=== PATIENT | female | born 1990 | race African-American/Black ===

== ENCOUNTER 2024-02-03 06:02 | Inpatient (IN) | payer OTHER ==
[2024-02-03] VITALS (8 sets, daily range): BP systolic 111–128; BP diastolic 55–63; TEMP 97.9–99.3; O2SAT 13–100
[~2024-02-03] VITALS: Ht 157.5 cm; Wt 79.5 kg
[~2024-02-03 06:02] MED LIST: FERR325T3 PO; NEUR300C PO; SUMA25TA3 PO; THERTAB52 PO; VITA100093 PO; XULA1DIS TD
[2024-02-03] MEDS ORDERED: LR 1,000 ML IV SCH (06:35)
[2024-02-03] MEDS ORDERED: LIDOCAINE 1% SDV 5ML VIAL SC PRN (06:35)
[2024-02-03 06:48] LABS: HCG, SERUM QUALITATIVE NEGATIVE (NEGATIVE)
[2024-02-03 06:53] LABS: ALBUMIN 3.2 G/DL (3.2-5.2); ALKALINE PHOSPHATASE 53 U/L (46-116); ALT/SGPT 12 U/L (7.0-40); AST/SGOT 11 U/L (<34); BILIRUBIN,TOTAL 0.3 MG/DL (0.3-1.2); BLOOD UREA NITROGEN 6 MG/DL (9-23); CARBON DIOXIDE LEVEL 27 MMOL/L (20-31); CHLORIDE LEVEL 109 MMOL/L (98-107); CREATININE FOR GFR 0.78 MG/DL (0.55-1.30); GLOMERULAR FILTRATION RATE > 60.0 (>60); GLUCOSE, FASTING 118 MG/DL (60-100); SODIUM LEVEL 140 MMOL/L (136-145)
[2024-02-03] MEDS ORDERED: NS 1,000 ML IV SCH (07:10)
[2024-02-03] MEDS ORDERED: fentaNYL 250 MCG/5 ML INJECTION As Ordered ONE (07:22)
[2024-02-03] MEDS ORDERED: LIDOCAINE 2% 100MG/5ML SDV (FOR ANES.) As Ordered ONE (07:22)
[2024-02-03] MEDS ORDERED: dexmedeTOMIDine (4MCG/ML)200MCG/50ML BTL (PRECEDEX) As Ordered ONE (07:22)
[2024-02-03] MEDS ORDERED: propofoL 200 MG/20 ML VIAL As Ordered ONE (07:22)
[2024-02-03] MEDS ORDERED: ROCURONIUM BROMIDE 50MG/5ML VIAL As Ordered ONE (07:22)
[2024-02-03] MEDS ORDERED: ONDANSETRON 4MG 2ML VIAL As Ordered ONE (07:22)
[2024-02-03] MEDS ORDERED: MIDAZOLAM INJ 2MG/2ML VIAL As Ordered ONE (07:23)
[2024-02-03] MEDS ORDERED: HOME MED LIST COMPLETE! XX SCH (07:35)
[2024-02-03] MEDS: ceFAZolin SOD 2 GM in IV 1 EA IV ONE (07:55)
[2024-02-03] MEDS: ceFAZolin 2 GM/D5W 50 ML IV BAG As Ordered ONE (08:16)
[2024-02-03] MEDS ORDERED: KETOROLAC 60MG 2ML VIAL As Ordered ONE (08:20)
[2024-02-03] MEDS ORDERED: SUGAMMADEX SODIUM 500 MG/5 ML VIAL (BRIDION) As Ordered ONE (08:20)
[2024-02-03] MEDS ORDERED: HYDROmorphone HCL 2MG/ML 1ML VIAL As Ordered ONE (08:20)
[2024-02-03] MEDS ORDERED: ACETAMINOPHEN 1000MG 100ML IV BAG As Ordered ONE (08:26)
[2024-02-03] MEDS: TRANEXAMIC ACID 100 MG/ML 10ML VIAL As Ordered ONE (08:40)
[2024-02-03] MEDS ORDERED: ESMOLOL INJ 100MG/10ML VIAL As Ordered ONE (08:45)
[2024-02-03] MEDS: SENOKOT S TAB PO SCH (09:00)
[2024-02-03] MEDS: VASOPRESSIN INJ 20UNITS/ML 1ML VIAL As Ordered ONE (09:03)
[2024-02-03] MEDS ORDERED: oxyCODONE 5MG TAB PO PRN (11:15)
[2024-02-03] MEDS ORDERED: fentaNYL 100 MCG/2 ML INJECTION IV PRN (11:15)
[2024-02-03] MEDS ORDERED: MIRALAX *UNIT DOSE* 17GM PACKET PO PRN (11:15)
[2024-02-03] MEDS ORDERED: METOCLOPRAMIDE INJ 10MG/2ML VIAL IV PRN (11:15)
[2024-02-03] MEDS: LR 1,000 ML IV SCH ×2 (11:15→14:08)
[2024-02-03] MEDS ORDERED: MORPHINE 2 MG/ML 1ML VIAL IV PRN (11:15)
[2024-02-03] MEDS ORDERED: HYDROMORPHONE HCL 0.5 MG/ 0.5 ML SYRINGE IV PRN (11:15)
[2024-02-03] MEDS ORDERED: ONDANSETRON 4MG 2ML VIAL IV PRN ×2 (11:15)
[2024-02-03] MEDS ORDERED: KETOROLAC 30 MG/ML 1ML VIAL IV SCH (15:00)
[2024-02-03] MEDS: ACETAMINOPHEN 325 MG TAB PO SCH (15:12)
[2024-02-03] MEDS: GABAPENTIN 300 MG CAP PO SCH (15:58)
[2024-02-03] MEDS: KETOROLAC 30 MG/ML 1ML VIAL IV SCH (17:01)
[2024-02-03] MEDS: oxyCODONE 5MG TAB PO PRN (18:22)
[2024-02-04] VITALS: BP 105/56; TEMP 98.4; O2SAT 99
[2024-02-04 04:00] VITALS: BP 98/55; TEMP 97.9; O2SAT 100
[2024-02-04 06:41] LABS: BASO % 0.1 % (0.0-1.0); EOS % 0.2 % (0.0-3.0); HEMOGLOBIN 9.5 g/dl (12.0-15.5); LYMPH # 2.3 10^3/uL (1.5-5.0); MEAN CORPUSCULAR HEMOGLOBIN 29.7 pg (27.0-33.0); MEAN CORPUSCULAR HGB CONC 33.9 g/dl (32.0-36.5); MEAN CORPUSCULAR VOLUME 87.5 fl (80.0-96.0); MONO # 0.6 10^3/uL (0.0-0.8); NEUTROPHILS # 6.2 10^3/uL (1.5-8.5); NEUTROPHILS % 67.5 % (36.0-66.0); PLATELET COUNT, AUTOMATED 296 10^3/uL (150-450); WHITE BLOOD COUNT 9.1 10^3/uL (4.0-10.0)
[2024-02-04 08:00] VITALS: BP 108/60; TEMP 98.2; O2SAT 100
[2024-02-04] MEDS ORDERED: oxyCODONE 5MG TAB PO PRN (08:10)
[2024-02-04] MEDS: SIMETHICONE 80MG CHEW TAB PO SCH (08:55)
[2024-02-04 11:24] LABS: BASO % 0.2 % (0.0-1.0); EOS % 0.2 % (0.0-3.0); HEMATOCRIT 28.7 % (36.0-47.0); HEMOGLOBIN 9.6 g/dl (12.0-15.5); LYMPH # 2.5 10^3/uL (1.5-5.0); LYMPH % 26.1 % (24.0-44.0); MEAN CORPUSCULAR HEMOGLOBIN 29.2 pg (27.0-33.0); MEAN CORPUSCULAR HGB CONC 33.4 g/dl (32.0-36.5); MEAN CORPUSCULAR VOLUME 87.2 fl (80.0-96.0); MONO # 0.5 10^3/uL (0.0-0.8); MONO % 4.7 % (2.0-8.0); NEUTROPHILS # 6.5 10^3/uL (1.5-8.5); NEUTROPHILS % 68.5 % (36.0-66.0); PLATELET COUNT, AUTOMATED 299 10^3/uL (150-450); RED BLOOD COUNT 3.29 10^6/uL (4.00-5.40); WHITE BLOOD COUNT 9.5 10^3/uL (4.0-10.0)
[2024-02-04 12:00] VITALS: BP 123/67; TEMP 98.7; O2SAT 99
[2024-02-04] MEDS: IBUPROFEN 800 MG TAB PO SCH (12:10)
== END 2024-02-04 14:12 | disposition home or self-care (01) | DRG 743 ==
LOC: INTOOBSV 06:02 → M OR 06:02 → EDSTATUS 07:30 → M PED 12:54 → OBSVTOIN 02-04 09:27
PROVIDERS: ADMIT Student in an Organized Health Care Education/Training Program; ATTEND Student in an Organized Health Care Education/Training Program
PROC: 0UB90ZZ Excision of Uterus, Open Approach (ICD-10-PCS; principal; 2024-02-04)
DX: D25.1 Intramural leiomyoma of uterus (principal); Z79.899 Other long term (current) drug therapy

== ENCOUNTER → 2024-03-01 | Outpatient (REF) | LOC: M PLAIMG 13:26 | PROVIDERS: ATTEND Internal Medicine | DX: R06.02 Shortness of breath (principal) ==

== ENCOUNTER → 2024-05-02 | Outpatient (REF) | payer OTHER ==
[2024-05-02 16:59] LABS: MAGNESIUM LEVEL 2.2 MG/DL (1.8-2.4); PHOSPHORUS LEVEL 3.5 MG/DL (2.5-4.9)
== END ==
LOC: M SFHCRHEU 11:50
PROVIDERS: ATTEND Internal Medicine
DX: R70.0 Elevated erythrocyte sedimentation rate (principal); M79.18 Myalgia, other site